=== PATIENT | male | born 1960 | race Caucasian/White ===

== ENCOUNTER 2023-12-16 09:00 | Outpatient (RCR) | payer OTHER, SELFPAY ==
--- NOTE | 2023-11-17 14:31 | OPREHPOC ---
Outpatient Therapy Plan of Care This is a Multidisciplinary Plan of Care that may contain components documented by all disciplines (PT, OT, and ST.) PT Problem 1 PT Problem #1 Knowledge Deficit PT Goal 1 Goal / Goal Update [place] with HEP Target Visit 4 PT Problem 2 PT Problem #2 Impaired Flexibility PT Goal 1 Goal / Goal Update Demonstrate -25 or better on hamstring 90/90 test for reduced posterior pelvic pull Target Visit 8 PT Goal 2 Goal / Goal Update Demonstrate minimal piriformis restriction bilaterally to improve hip functional ROM Target Visit 8 PT Problem 3 PT Problem #3 Impaired Range of Motion PT Goal 1 Goal / Goal Update Demonstrate 10 degrees+ of dani hip extension to lengthen stride and reduce hip flexion posturing restriction Target Visit 8 PT Problem 4 PT Problem #4 Impaired Strength PT Goal 1 Goal / Goal Update Improve dani hip abduction to 4+/5 to improve lateral stability with dynamic activity. Target Visit 8
--- NOTE | 2023-11-17 14:31 | PTOPEVAL1 ---
Assessment and note entered by Lazaro Araujo, PT Evaluation Information Assessment Status Evaluation Diagnosis Parkinson's Disease ICD-10 Condition Codes (PT) R26.9 Onset 2019 Subjective Information Reports that he has been noticing a lot of rigidity and stiffness every day. Most days he is okay but he never feels great. Feels he is getting a lot of tightness and for the past year he feel like he is on a boat at rest, with a rocking feeling. Notes a lot of fatigue with mild activity . Feels that his right side is starting to get slower and he is left handed. Reports frequent fall wit catching his toes and lateral imbalance. Had a broken rib last year from a fall. Does not have pinpointed pain, but he notes gross discomfort in body and spine making it hard to stand up straight. Assessment PT Clinical Summary Patient presents as low fall risk this date per Tinetti and 2 minute walk test. He is however showing early rigidity and loss of mobility in hips, spine, and ankles with early onset of Parkinsonian posturing. Patient will benefit form skilled therapy to address noted balance deficits, loss in joint mobility, and hip weakness. Plan of Care Interventions Electrical Stimulation,Gait Training,Hot Pack/Cold Pack,Manual Therapy,Neuro Re-education, Therapeutic Activities,Therapeutic Exercise PT Services Indicated Yes Treatment Frequency and 2x/week for 8 visits Duration These treatments will address the objective and functional deficits as defined above. The patient will be advanced safely and appropriately in order for the patient to progress towards his/her prior level of function. Additional exercises will be introduced and as well as a comprehensive home exercise program upon discharge, if needed, ?to ensure carryover of functional gains achieved in the clinic. This treatment plan has been reviewed and agreement upon by the patient.
--- NOTE | 2023-12-16 09:50 | PTOPDC ---
Assessment and note entered by Minoo Prado, PT Discharge Report Assessment Status Discharge Diagnosis Parkinson's Disease ICD-10 Condition Codes (PT) R26.9 Onset 2019 Subjective Information have had one fall since starting therapy--in the house and just lost his balance, not sure what happened; am getting better- stronger since coming for therapy; have been doing to the [facility] Parkinson's exercises classes 2x/wk; figured today would be his last day of therapy-- have a good exercise routine now. Reported Pain Level Pain Score 0: Self Report Additional Pain Score Comments sometimes legs are stiff and joints feel funny; Assessment PT Clinical Summary Kwabena has received 8 PT sessions. Compared to the initial evaluation: Tinetti balance score improved from 24 to 27/28; Reece balance score of 54/56--problems with standing, holding narrow stance; 2 minute walking test distance is 20' less; good gait pattern and indep on 12 stairs, without hand railing; increase flexibility of bilateral hip extension, hamstring and piriformis length; increase hip strength; education for HEP and safety with mobility. The goals were achieved, except hamstring flexibility. Discharge PT. He is to continue with his HEP and is going to the [facility] Parkinsonn's class 2x/wk. Plan of Care PT Services Indicated No
== END 2023-12-16 10:18 | disposition home or self-care (01) ==
LOC: ANHPT 09:00
PROVIDERS: PCP Internal Medicine
DX: G20.A1 Parkinson's disease without dyskinesia, without mention of fluctuations (principal)
CPT/HCPCS: 97110; 97112; 97116; 97140; 97161; 97530